=== PATIENT | female | born 1985 | race American Indian/Alaskan Native ===

== ENCOUNTER 2020-12-30 12:17 | Emergency (ER) | payer OTHER ==
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
[2020-12-30 15:30] LABS: Basophils % (Auto) 0.3 % (0.0-1.8); Eosinophils # (Auto) 0.1 K/mm3 (0.0-0.4); Hematocrit 46.4 % (30.3-42.9); Hemoglobin 15.4 gm/dl (10.1-14.3); Lymphocytes % (Auto) 46.4 % (13.4-35.0); Mean Corpuscular HGB Conc 33 % (30-34); Mean Corpuscular Volume 93 fl (79-97); Monocytes # (Auto) 0.3 K/mm3 (0.0-0.8); Monocytes % (Auto) 5.2 % (0.0-7.3); Red Blood Count 4.98 M/mm3 (3.65-5.03); Red Cell Distribution Width 13.8 % (13.2-15.2)
[2020-12-30 15:37] LABS: INR 0.94 (0.87-1.13); Partial Thromboplastin Time 23.2 Sec. (24.2-36.6)
[2020-12-30 15:50] LABS: Alanine Aminotransferase 46 units/L (7-56); Albumin 4.3 g/dL (3.9-5); Blood Urea Nitrogen 12 mg/dL (7-17); Calcium 9.3 mg/dL (8.4-10.2); Hemolysis Index 28
[2020-12-30 15:55] LABS: BUN/Creatinine Ratio 20
[2020-12-30 16:08] LABS: Platelet Count 96 K/mm3 (140-440)
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
[2020-12-30] MEDS ORDERED: KETOROLAC 30 MG/1 ML INJ IV ONE (18:17)
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
[2020-12-30] MEDS ORDERED: amLODIPine 5 MG TAB PO ONE (20:42)
[2020-12-30 20:51] VITALS: BP 169/91
== END 2020-12-30 21:03 | disposition home or self-care (01) ==
LOC: ED 12:17
DX: S16.1XXA Strain of muscle, fascia and tendon at neck level, initial encounter (principal); S39.012A Strain of muscle, fascia and tendon of lower back, initial encounter; I10 Essential (primary) hypertension; F17.200 Nicotine dependence, unspecified, uncomplicated; Z79.899 Other long term (current) drug therapy; X58.XXXA Exposure to other specified factors, initial encounter; Y93.89 Activity, other specified; Y92.89 Other specified places as the place of occurrence of the external cause; Y99.8 Other external cause status
CPT/HCPCS: 36415; 70450; 71046; 72072; 72100; 72125; 80053; 84484; 84703; 85025; 85379; 85610; 85730; 93005; 96374; 99285; J1885